=== PATIENT | female | born 1955 | race Caucasian/White ===

== ENCOUNTER 2017-03-05 10:36 | Inpatient (IN) | payer OTHER ==
[2017-03-05] MEDS ORDERED: METOPROLOL TARTRATE 25 MG TAB PO (11:15)
[2017-03-05] MEDS ORDERED: SODIUM CHLORID 0.9% 500 ML IV (11:15)
[2017-03-05] MEDS: CHLORHEXIDINE GLUCONATE 2 % 1 PACK (2 CLOTHS) TOPICAL (11:20)
[2017-03-05] MEDS: LACTATED RINGER'S 1000 ML IV (11:45)
[2017-03-05] MEDS: POVIDONE IODINE 5% (ANTISEPSIS KIT) 4 APPLICATIONS EACH NARE (11:52)
[2017-03-05] MEDS: CHLORHEXIDINE GLUCONATE 4% SOLN 120 ML BTL TOPICAL (11:52)
[2017-03-05] MEDS ORDERED: ONDANSETRON HCL 4 MG/2 ML VIAL IV (12:00)
[2017-03-05] MEDS ORDERED: LIDOCAINE HCL 1% PF 5 ML SYRINGE OTHER (12:00)
[2017-03-05] MEDS ORDERED: ROCURONIUM INJ 50 MG/5 ML SYRINGE IV PUSH (12:00)
[2017-03-05] MEDS ORDERED: ePHEDrine/NS 25 MG/5 ML SYRINGE IV (12:00)
[2017-03-05] MEDS ORDERED: PROPOFOL 200 MG/20 ML AMP IV (12:00)
[2017-03-05] MEDS ORDERED: DEXAMETHASONE SOD PHOS 4 MG/ML VIAL IV (12:00)
[2017-03-05] MEDS ORDERED: PHENYLEPH/NS 1000 MCG/10 ML SYR IV (12:00)
[2017-03-05 12:08] LABS: BILIRUBIN, URINE NEG (NEG); BLOOD, URINE NEG (NEG); COMMENT (UR) CATH-CULT NOT IND; CULTURE IF INDICATED CATH CULTURE NOT IND; GLUCOSE,URINE NEG (NEG); KETONE, URINE NEG (NEG); MUCUS URINE FEW /lpf (OCC); NITRITE,URINE NEG (NEG); PH, URINE 6.5 (5.0-8.5); URINE COLOR YELLOW (YELLW/STRAW); URINE LEUKOCYTE ESTERASE NEG (NEG)
[2017-03-05] MEDS ORDERED: ACETAMINOPHEN 1000 MG/100 ML 100 ML IV (13:36)
[2017-03-05] MEDS: ceFAZolin INJ 1,000 MG VIAL (15:38)
[2017-03-05] MEDS: VANCOMYCIN 1000 MG/NS 250 ML (for <70 kg) IV (15:40)
[2017-03-05] MEDS: ceFAZolin 2 GM PREMIX 50 ML IV (15:40)
[2017-03-05] MEDS ORDERED: HYDROmorphone HCL PF 2 MG/ML VIAL (15:44)
[2017-03-05] MEDS: GENTAMICIN SULFATE 80 MG/2 ML VIAL (16:45)
[2017-03-05] MEDS ORDERED: DO NOT ADM ANY ANTICOAGULANT DRUGS (17:25)
[2017-03-05] MEDS ORDERED: Post-op Orders (for Pharmacy) XX (17:30)
[2017-03-05] MEDS ORDERED: MORPHINE SULFATE 8 MG/ML INJ IM (17:30)
[2017-03-05] MEDS ORDERED: ALUMINUM/MAGNESIUM/SIMETH 30 ML CUP PO (17:30)
[2017-03-05] MEDS ORDERED: ONDANSETRON HCL 4 MG/2 ML VIAL IVP (17:30)
[2017-03-05] MEDS ORDERED: MIDAZOLAM HCL 2 MG/2 ML VIAL (17:33)
[2017-03-05] MEDS: LACTATED RINGER'S 1000 ML INJ 1,000 ML IV (18:00)
[2017-03-05] MEDS ORDERED: ZOLPIDEM TARTRATE 5 MG TAB PO (21:00)
[2017-03-05] MEDS: ASPIRIN EC 81 MG TABEC PO (22:16)
[2017-03-06] MEDS: ACETAMINOPHEN/HYDROcodone 325 MG/5 MG TAB PO ×3 (04:18→12:33)
[2017-03-06 07:26] LABS: HEMOGLOBIN 10.5 GM/DL (11.6-15.3)
[2017-03-06 07:26] LABS: HEMATOCRIT 30.7 % (35.0-46.0); REVIEW FLAG FINAL
[2017-03-06] MEDS: ASPIRIN EC 81 MG TABEC PO (08:56)
[2017-03-06] MEDS: PNEUMOCOCCAL POLYVALENT INJ 25 MCG/0.5 ML SYR IM (08:56)
[2017-03-06] MEDS ORDERED: DOCUSATE SODIUM 100 MG CAP PO (21:00)
== END 2017-03-06 13:01 | disposition home health service (06) | DRG 470 ==
LOC: HSDI 10:36 → N06B 18:52
PROVIDERS: Orthopaedic Surgery Orthopaedic Surgery of the Spine
PROC: 0SRB03A Replacement of Left Hip Joint with Ceramic Synthetic Substitute, Uncemented, Open Approach (ICD-10-PCS; principal; 2017-03-05 15:20)
DX: M16.0 Bilateral primary osteoarthritis of hip (principal); E78.5 Hyperlipidemia, unspecified; Q65.89 Other specified congenital deformities of hip; M51.36 Other intervertebral disc degeneration, lumbar region; M81.0 Age-related osteoporosis without current pathological fracture; Z23 Encounter for immunization
CPT/HCPCS: 36415; 73502; 81001; 85014; 85018; 86850; 86900; 86901; 86920; 90732; 94150; 97110-GP; 97116-GP; 97163-GP; 97166-GO

== ENCOUNTER 2017-07-23 09:56 | Inpatient (IN) | payer OTHER ==
[~2017-07-23] VITALS: Ht 167.6 cm; Wt 79.3 kg
[~2017-07-23 09:56] MED LIST: CALC1TAB87 PO; ECASA81 PO; TYLE325T PO; VITA2000 PO; VITA500T83 PO; VITATAB11 PO
[2017-07-23] MEDS ORDERED: VANCOMYCIN 1000 MG/NS 250 ML (for <70 kg) IV SCH ×2 (10:30)
[2017-07-23] MEDS ORDERED: LACTATED RINGER'S 1000 ML IV PRN (10:30)
[2017-07-23] MEDS ORDERED: METOPROLOL TARTRATE 25 MG TAB PO PRN (10:30)
[2017-07-23] MEDS ORDERED: POVIDONE IODINE 5% (ANTISEPSIS KIT) 4 APPLICATIONS EACH NARE PRN (10:30)
[2017-07-23] MEDS ORDERED: ceFAZolin 2 GM PREMIX 50 ML IV SCH (10:30)
[2017-07-23] MEDS ORDERED: SODIUM CHLORID 0.9% 500 ML IV PRN (10:30)
[2017-07-23] MEDS ORDERED: CHLORHEXIDINE GLUCONATE 2 % 1 PACK (2 CLOTHS) TOPICAL PRN (10:30)
[2017-07-23] MEDS ORDERED: VANCOMYCIN 1 GM/200 ML PREMIX ON-CALL IV SCH (11:00)
[2017-07-23] MEDS ORDERED: CHLORHEXIDINE GLUCONATE 4% SOLN 120 ML BTL TOPICAL SCH (11:00)
[2017-07-23] MEDS ORDERED: LIDOCAINE HCL 1% PF 5 ML SYRINGE OTHER ONE (12:00)
[2017-07-23] MEDS ORDERED: ePHEDrine/NS 25 MG/5 ML SYRINGE IV ONE (12:00)
[2017-07-23] MEDS ORDERED: PROPOFOL 200 MG/20 ML AMP IV ONE (12:00)
[2017-07-23] MEDS ORDERED: DEXAMETHASONE SOD PHOS 4 MG/ML VIAL IV ONE (12:00)
[2017-07-23] MEDS ORDERED: ROCURONIUM INJ 50 MG/5 ML SYRINGE IV PUSH ONE (12:00)
[2017-07-23] MEDS ORDERED: ONDANSETRON HCL 4 MG/2 ML VIAL IV ONE (12:00)
[2017-07-23] MEDS ORDERED: GENTAMICIN SULFATE 80 MG/2 ML VIAL ONE (12:24)
--- NOTE | 2017-07-23 14:41 | HHI.PR ---
Immediate Post Op Note Procedure Date: Jul 23, 2017 Pre Op Diagnosis: R Hip OA,Acet Dysplasia Post Op Diagnosis: Same Surgeon: Sudhakar Santos MD Coordinator Hotels(s): Marlin Clarke PA-C Procedure: R THR Complications: None Specimen(s) removed: None Estimated blood loss: 250cc Anesthesia: General Drains: None Patient to: PACU Patient Condition: Good Implant/Devices: SEE IMPLANT LOG (if applicable) Date/Time of Procedure: SEE SURGICAL CARE RECORD Sudhakar Santos MD Jul 23, 2017 14:40
[2017-07-23] MEDS ORDERED: Post-op Orders (for Pharmacy) XX ONE (14:45)
[2017-07-23] MEDS ORDERED: MORPHINE SULFATE 8 MG/ML INJ IM PRN (14:45)
[2017-07-23] MEDS ORDERED: ALUMINUM/MAGNESIUM/SIMETH 30 ML CUP PO PRN (14:45)
[2017-07-23] MEDS ORDERED: ZOLPIDEM TARTRATE 5 MG TAB PO PRN (14:45)
[2017-07-23] MEDS ORDERED: ACETAMINOPHEN/HYDROcodone 325 MG/5 MG TAB PO PRN (14:45)
[2017-07-23] MEDS ORDERED: HYDR-3516 PO (14:58)
[2017-07-23] MEDS ORDERED: ECASA81 PO (14:58)
[2017-07-23] MEDS: LACTATED RINGER'S 1000 ML INJ 1,000 ML IV SCH (15:00)
[2017-07-23] MEDS ORDERED: *morphine SULFATE 8 MG/ML PERIprocedure ONLY ONE ×2 (15:01→15:17)
--- NOTE | 2017-07-23 15:01 | HHI.FF ---
Face to Face Verification Diagnosis: (1) Osteoarthritis of right hip Physical Therapy Gait training Hip: Total hip, Protocol: Right, Posterior hip precautions, Progress to weight bearing Canvas Knee Splint: When in bed & 2 pillows btw thighs Right LE Weight Bearing: WB as tolerated Nursing RN: 3 days/week x 2 weeks Nursing: Dressing changes Dressing Changes: Coverderm/Primapore I have seen patient Flavia Miller on 07/23/17. My clinical findings support the need for the requested home health care services because: High risk of falls I certify that my clinical findings support that this patient is homebound because: Unsteady gait/balance Sudhakar Santos MD Jul 23, 2017 15:01
[2017-07-23] MEDS ORDERED: MIDAZOLAM HCL 2 MG/2 ML VIAL ONE (15:03)
--- NOTE | 2017-07-23 15:15 | MP ---
cc: Sudhakar Santos MDlenaIlsa DATE OF OPERATION: PREOPERATIVE DIAGNOSES: Right hip severe osteoarthritis, acetabular dysplasia. POSTOPERATIVE DIAGNOSIS: Right hip severe osteoarthritis, acetabular dysplasia. PROCEDURE PERFORMED: Right total hip arthroplasty. SURGEON: Sudhakar Santos MD FABRIC INSPECTOR: Marlin Clarke PA-C. ESTIMATED BLOOD LOSS: 250 mL ANESTHESIA: General. DRAINS: None. SPECIMENS: None. COMPLICATION: None. PLAN OF ACTIVITY: Per orders. My photographer's assistant Marlin Clarke PA-C was present for the entire surgical case. She was medically necessary for the entire case, because of the complexity of the case and to facilitate the performance of the procedure. The APPLICATION DEVELOPMENT TEAM LEAD at the back table was not of skill set for this case to manipulate the instruments, e.g. multiple different types of soft tissue retractors, trial implants and permanent implants. DESCRIPTION OF PROCEDURE: The patient was brought to the operating room, had satisfactory anesthesia by Dr. Aiden Lyman, Department of Anesthesia. The patient was positioned in the lateral decubitus position. The right hip and lower extremity was then prepped and draped in the usual sterile manner. Small posterolateral exposure to the hip was made. All bleeders were coagulated. Dissection of skin and subcutaneous tissue. Fascia santiago and gluteus luis was incised in line with the skin incision. Charnley retractor was placed in the wound in order to allow better exposure. The short external rotators removed as a group. Hip abductors were preserved. Capsulotomy was performed and the hip was dislocated posteriorly. The patient was found to have severe osteoarthritis involving the hip joint with acetabular dysplasia. Osteotomy was made on the femoral neck at the appropriate level. The soft tissues in the acetabulum were surgically excised sharply. These included the capsule and labrum. Using hemispherical reamers initially, the acetabulum was medialized and then gradually widened down to the subchondral plate. A 52 mm Bicentric cup press fit type manner was found to be very stable and satisfactory. This was removed without difficulty. Attention now brought to the femur. Using the [email or web address] Taperloc system, sequentially broached to a #8 broach lateral offset. The hip was reduced with the 0 neck, 28 mm head. The patient was found to have satisfactory catholic of the limb lengths, satisfactory stability and satisfactory range of motion. The hip was dislocated again posteriorly. All trial components were removed and preparation was made for insertion of the permanent prostheses. The wound was irrigated with copious amounts of sterile saline antibiotic solution. Using the [email or web address] Taperloc system a #8 lateral offset prosthesis was placed in anatomic position approximately 15 degrees of anteversion. A 0 neck, 28 mm ceramic head was then assembled onto the trunnion. The hip was reduced. Again, the patient was found to have satisfactory catholic of limb lengths, satisfactory stability of the hip and satisfactory range of motion. The wound again was irrigated with copious amounts of sterile saline antibiotic solution. The wound itself was dry. The short external rotators were repaired back to the greater trochanter with drill holes using multiple interrupted #2 Ti-Cron suture. The fascia santiago and gluteus luis was incised with number #2 Ti-Cron suture. Subcuticular was closed in layers with 0 Vicryl and 2-0 Vicryl, skin was approximated with running subcuticular 2-0 nylon suture. Instrument, sponge count correct after the operation. The patient tolerated the procedure well and arrived in the recovery room in stable and satisfactory condition. MD ROBBY Byers/TL , 02:37 PM , 03:13 PM
--- NOTE | 2017-07-23 15:41 | RADRPT ---
EXAM DATE: 07/23/2017 3:34 PM EDT AGE/SEX: 62 years / Female INDICATIONS: Post op right total hip. CLINICAL DATA: This is the patient's initial encounter. Patient reports that signs and symptoms have been present for 1 day and indicates a pain score of 4/10. MEDICAL/SURGICAL HISTORY: None. . Left total hip replacement COMPARISON: No prior exams available for comparison. FINDINGS: 3 views of the pelvis and right hip reveal bilateral hip arthroplasties. The left is only partially s een. The right is in good position. Air is noted within the joint on the right. No air seen involving the left hip joint. No acute fractures or dislocations. Venous calcifications overlie the pelvis. CONCLUSION: Right-sided hip arthroplasty in good position. Electronically signed by: Obdulio Rivera MD 07/23/2017 3:39 PM EDT
[2017-07-23] MEDS ORDERED: ONDANSETRON ODT 4 MG TAB PO PRN (16:15)
[2017-07-23] MEDS ORDERED: DO NOT ADM ANY ANTICOAGULANT DRUGS PRN (16:45)
[2017-07-23] MEDS: ACETAMINOPHEN/HYDROcodone 325 MG/5 MG TAB PO PRN ×2 (17:51→22:18)
[2017-07-23 20:00] VITALS: BP 104/54; PULSE 71; RESP 17; TEMP 98; O2SAT 94
[2017-07-23] MEDS: ASPIRIN EC 81 MG TABEC PO SCH (20:55)
[2017-07-24 00:01] VITALS: BP 105/52; PULSE 64; RESP 17; TEMP 98.2; O2SAT 95
[2017-07-24 04:00] VITALS: BP 98/55; PULSE 57; RESP 17; TEMP 98.3; O2SAT 94
[2017-07-24 05:06] LABS: HEMATOCRIT 29.1 % (35.0-46.0); HEMOGLOBIN 9.8 GM/DL (11.6-15.3)
[2017-07-24] MEDS: LACTATED RINGER'S 1000 ML INJ 1,000 ML IV SCH (06:11)
--- NOTE | 2017-07-24 07:11 | PD.ORT.PN ---
Subjective Subjective Remarks POD #1 R THR Seen with daughter;answered multiple questions No c/o pain No chest pain;no SOB Objective Vitals Vital Signs Date Time Temp Pulse Resp B/P (MAP) Pulse Ox O2 Delivery O2 Flow Rate FiO2 07/24/17 04:00 98.3 57 17 98/55 (69) 94 07/24/17 00:01 98.2 64 17 105/52 (69) 95 07/23/17 21:00 18 07/23/17 20:00 98.0 71 17 104/54 (71) 94 07/23/17 15:45 60 16 116/56 (76) 95 Room Air 07/23/17 15:30 60 16 104/54 (71) 95 Room Air 07/23/17 15:15 60 16 103/50 (67) 95 Room Air 07/23/17 15:00 64 16 113/56 (75) 98 Room Air 07/23/17 14:55 97.9 62 16 147/67 (93) 100 07/23/17 10:49 97.7 66 16 141/71 (94) 99 I/O 07/23/17 07/23/17 07/23/17 07/24/17 07/24/17 07/24/17 07:00 15:00 23:00 07:00 15:00 23:00 Intake Total 1200 ml 30 ml 450 ml Output Total 250 ml Balance 950 ml 30 ml 450 ml Intake Oral 450 ml IV Total 30 ml Other 1200 ml Output Estimated Blood Loss 250 ml # Voids 3 Result Diagram: 07/24/17 0357 Imaging Last 24 hours Impressions Hip and Pelvis X-Ray 07/23/17 1444 Signed Impressions: CONCLUSION: Right-sided hip arthroplasty in good position. Objective Remarks N/V intact Dressings dry No LLD Assessment & Plan Assessment and Plan Ortho stable Discharge home today;HHC RN/PT Aaspirin 81mg BID x 4 weeks,TEDS for DVT/PE prophylaxsis Sudhakar Santos MD Jul 24, 2017 07:11
[2017-07-24 08:00] VITALS: BP 94/46; PULSE 59; RESP 18; TEMP 97.7; O2SAT 96
[2017-07-24] MEDS: ACETAMINOPHEN/HYDROcodone 325 MG/5 MG TAB PO PRN (08:03)
[2017-07-24] MEDS: ASPIRIN EC 81 MG TABEC PO SCH (08:04)
[2017-07-24] MEDS ORDERED: CHOLECALCIFEROL (VIT D3) 1000 UNIT TAB PO SCH (09:00)
[2017-07-24] MEDS ORDERED: ASCORBIC ACID 500 MG TAB PO SCH (09:00)
[2017-07-24] MEDS ORDERED: NON-FORMULARY DRUG (Ascorbic Acid ER (Vitamin C ER) 500 MG) PO SCH (09:00)
[2017-07-24] MEDS ORDERED: VITAMIN B COMPLEX/VIT C TAB PO SCH (09:00)
[2017-07-24] MEDS ORDERED: NON-FORMULARY DRUG (B-Complex Vitamins (Vitamin B Complex) 1 TAB) PO SCH (09:00)
[2017-07-24] MEDS ORDERED: PNEUMOCOCCAL POLYVALENT INJ 25 MCG/0.5 ML SYR IM ONE (10:00)
[2017-07-24] MEDS ORDERED: DOCUSATE SODIUM 100 MG CAP PO SCH (21:00)
== END 2017-07-24 09:52 | disposition home health service (06) | DRG 470 ==
LOC: HSDI 09:56 → N06B 16:24
PROVIDERS: ADMIT Orthopaedic Surgery Orthopaedic Surgery of the Spine; ATTEND Orthopaedic Surgery Orthopaedic Surgery of the Spine
PROC: 0SR903A Replacement of Right Hip Joint with Ceramic Synthetic Substitute, Uncemented, Open Approach (ICD-10-PCS; principal; 2017-07-23 13:06)
DX: M16.11 Unilateral primary osteoarthritis, right hip (principal); Q65.89 Other specified congenital deformities of hip; E66.9 Obesity, unspecified; Z68.28 Body mass index [BMI] 28.0-28.9, adult; Z23 Encounter for immunization
CPT/HCPCS: 36415; 73501; 85014; 85018; 86850; 86900; 86901; 86920; 90732; 94150; C1776; J0690; J1100; J1580; J2250; J2270; J2405; J3010; J3370; J7120